=== PATIENT | female | born 1960 | race Caucasian/White ===

== ENCOUNTER → 2020-08-29 13:39 | Outpatient (CLI) | payer OTHER, SELFPAY ==
--- NOTE | 2020-08-29 13:45 | XR_ITS ---
PROCEDURE: XR CHEST 2V CLINICAL HISTORY: CHRONIC COUGH COMPARISON: No exams were available for comparison FINDINGS: The cardiomediastinal silhouette and pulmonary vascularity are within normal limits. The lungs are clear without infiltrates, suspicious nodules, or pleural effusions. There is calcified granuloma in the superior segment of left lower lobe. No acute bony findings. IMPRESSION: No acute findings. Dictated by: Arsalan Ryder MD 08/29/2020 14:20 Arsalan Ryder MD in [facility] 08/29/2020 14:20
== END ==
PROVIDERS: PCP Family Medicine; Visit Provider Family Medicine
DX: R05 Cough (principal)
CPT/HCPCS: 71046